=== PATIENT | female | born 1970 | race Caucasian/White ===

== ENCOUNTER 2019-02-10 09:59 | Day surgery (SDC) | payer MEDICAID ==
[~2019-02-10 09:59] MED LIST: Lactated Ringers 1,000 ML IV SCH; Sodium Chloride 0.9% 10 ML Syringe FLUSH PRN
[2019-02-10] MEDS ORDERED: fentaNYL 100 MCG/2 ML SDV ONE (11:11)
[2019-02-10] MEDS ORDERED: Propofol 200 MG/20 ML SDV ONE (11:11)
--- NOTE | 2019-02-10 12:34 | OR ---
PREOPERATIVE DIAGNOSIS: Screening colonoscopy. POSTOPERATIVE DIAGNOSIS: Normal colonoscopic exam. PROCEDURE PROPOSED/PROCEDURE DONE: Total flexible colonoscopy. INDICATION: This is a 49-year-old female, who comes in for a screening colonoscopy based on her age. She denies any symptomatology and she has a negative family history for any colon cancer. TECHNIQUE: The patient was brought to the endoscopy suite, placed in left lateral decubitus position. She was sedated per HUMAN CAPITAL MANAGER with propofol. The flexible video colonoscope was then passed transanally and under visualization advanced to the cecum. Examination revealed a normal ascending, transverse, descending, sigmoid, and rectal colon. There was no evidence of any diverticulosis, polyps, colitis, or any other abnormalities. The scope was withdrawn. She tolerated the procedure well. FINAL IMPRESSION: Essentially normal colonoscopic exam. PLAN: The patient was reassured and I felt she could wait 10 years before she needs a repeat colonoscopy. SCM: 02/10/2019 12:24:03 MODL: 02/10/2019 12:31:19 /[id number]
== END 2019-02-10 13:30 | disposition home or self-care (01) ==
LOC: VM.SDS 09:59
PROVIDERS: ATTEND Surgery
DX: Z12.11 Encounter for screening for malignant neoplasm of colon (principal); E03.9 Hypothyroidism, unspecified; G43.509 Persistent migraine aura without cerebral infarction, not intractable, without status migrainosus; I65.23 Occlusion and stenosis of bilateral carotid arteries; J06.9 Acute upper respiratory infection, unspecified; Z88.8 Allergy status to other drugs, medicaments and biological substances; Z88.0 Allergy status to penicillin; Z88.2 Allergy status to sulfonamides
CPT/HCPCS: J2704; J3010; J7120

== ENCOUNTER 2019-10-02 21:45 | Emergency (ER) | payer MEDICAID ==
[2019-10-02] MEDS ORDERED: Take Home: Naproxen 500 MG Tab, 4 Tab Pack PO ONE (23:11)
--- NOTE | 2019-10-03 06:00 | EDM.PDOC ---
ED HPI GENERAL MEDICAL PROBLEM - General Chief Complaint: Lower Extremity Injury/Pain Stated Complaint: INJURY TO R knee Time Seen by Provider: 10/02/19 21:50 Source of Information: Reports: Patient History Limitations: Reports: No Limitations - History of Present Illness INITIAL COMMENTS - FREE TEXT/NARRATIVE: PtRajat presents to ER with complaints of R knee pain. She states that she feel down 2 stairs while carrying blankets down the stairs. She states that her pain is isolated to her R proximal lower leg area/knee. Denies striking her head. No chest pain or shortness of breath. Denies any chest pain, shortness of breath, lightheadedness prior to the fall. Onset Date: 10/03/19 Location: Reports: Lower Extremity, Right Quality: Reports: Sharp Right Knee Pain Score (Numeric/FACES): 3 - Related Data Allergies Allergy/AdvReac Type Severity Reaction Status Date / Time Barbiturates Allergy Other Verified 10/02/19 22:02 nitrofurantoin Allergy Hives Verified 10/02/19 22:02 Penicillins Allergy Hives Verified 10/02/19 22:02 Sulfa (Sulfonamide Allergy Other Verified 10/02/19 22:02 Antibiotics) Home Meds: Home Meds Levothyroxine 75 mcg PO ACBREAKFAST 02/06/19 [History] Past Medical History Other Cardiovascular History: artherosclerosis of both arotid artieries Neurological History: Reports: Migraines Endocrine/Metabolic History: Reports: Hypothyroidism Social & Family History - Tobacco Use Smoking Status *Q: Never Smoker Review of Systems - Review of Systems Review Of Systems: Comprehensive ROS is negative, except as noted in HPI. ED EXAM, GENERAL - Physical Exam Exam: See Below Exam Limited By: No Limitations General Appearance: Alert, WD/WN, No Apparent Distress Extremities: Leg Pain (pain to palp of R proximal lower leg/knee. No deformity. No crepitus.) Neurological: Alert, Oriented, CN II-XII Intact, Normal Cognition, Normal Gait, Normal Reflexes, No Motor/Sensory Deficits Course - Vital Signs Last Recorded V/S: Last Vital Signs Temp 36.2 C 10/02/19 21:57 Pulse 95 10/02/19 21:57 Resp 16 10/02/19 21:57 BP 115/67 10/02/19 21:57 Pulse Ox 96 02/13/20 21:57 - Orders/Labs/Meds Orders: Active Orders 24 hr Category Date Time Status Knee 3V Rt [CR] Stat Exams 10/02/19 21:59 Taken Tibia Fibula Rt [CR] Stat Exams 10/02/19 21:58 Taken Meds: Medications Discontinued Medications Generic Name Dose Route Start Last Admin Trade Name Carlos PRN Reason Stop Dose Admin Naproxen 1 packet 10/02/19 23:11 10/02/19 23:19 Take Home: Naproxen 500 Mg, 4 Tab Pack PO 10/02/19 23:12 1 packet ONETIME ONE Administration - Radiology Interpretation Free Text/Narrative:: No pathology on R knee/lower leg radiographs Departure - Departure Time of Disposition: 23:30 Disposition: Home, Self-Care 01 Clinical Impression: Right knee sprain - Discharge Information Instructions: RICE Therapy for Routine Care of Injuries, [id number], Knee Sprain, Adult, [id number], Naproxen and naproxen sodium oral immediate- release tablets Referrals: Nevaeh Dawson MD [Primary Care Provider] - Forms: ED Department Discharge Additional Instructions: Home to rest Ice knee for 20 min every 1-2 hours Naproxen 500mg 1 tab twice daily as needed for pain Use YOSEF wrap as needed for further support. Use crutches to assist in getting around. Slowly try adding more weight as you are able. If you are unable to bear any weight after a week, follow-up in clinic. Otherwise follow-up in clinic in 10-14 days for recheck. Sepsis Event Note - Evaluation Sepsis Screening Result: No Definite Risk - Focused Exam Vital Signs: Vital Signs Temp Pulse Resp BP Pulse Ox 10/02/19 21:57 36.2 C 95 16 115/67 96 Date Exam was Performed: 10/03/19 Time Exam was Performed: 05:55 - My Orders Last 24 Hours: My Active Orders 10/02/19 21:58 Tibia Fibula Rt [CR] Stat 10/02/19 21:59 Knee 3V Rt [CR] Stat - Assessment/Plan Last 24 Hours: My Active Orders 10/02/19 21:58 Tibia Fibula Rt [CR] Stat 10/02/19 21:59 Knee 3V Rt [CR] Stat Plan: Home to rest Ice knee for 20 min every 1-2 hours Naproxen 500mg 1 tab twice daily as needed for pain Use YOSEF wrap as needed for further support. Use crutches to assist in getting around. Slowly try adding more weight as you are able. If you are unable to bear any weight after a week, follow-up in clinic. Otherwise follow-up in clinic in 10-14 days for recheck.
--- NOTE | 2019-10-03 07:42 | CR ---
[id number] RAD/RAD Tibia Fibula Right EXAM: RAD Tibia Fibula Right CLINICAL DATA: TRAUMA COMPARISON: NO PREVIOUS SIMILAR EXAM IS AVAILABLE. FINDINGS: No fracture or dislocation is seen. There is no radiopaque foreign body in the soft tissues. There is no air in the soft tissues. There is no cortical thickening or periosteal reaction either. IMPRESSION: NEGATIVE PLAIN FILM EXAM. Braden Joe MD 10/03/19 0740 Thank you for allowing us to participate in the care of your patient.
--- NOTE | 2019-10-03 07:42 | CR ---
[id number] RAD/RAD Knee Right 3V EXAM: RAD Knee Right 3V CLINICAL DATA: TRAUMA COMPARISON: No previous similar exam is available. FINDINGS: No fracture or dislocation is seen. There is no radiopaque foreign body in the soft tissues. There is no air in the soft tissues. There is no cortical thickening or periosteal reaction either. IMPRESSION: NEGATIVE PLAIN FILM EXAM. Braden Joe MD 10/03/19 0741 Thank you for allowing us to participate in the care of your patient.
== END 2019-10-02 23:30 | disposition home or self-care (01) ==
LOC: VM.ED 21:45
DX: S83.91XA Sprain of unspecified site of right knee, initial encounter (principal); E03.9 Hypothyroidism, unspecified; Z79.899 Other long term (current) drug therapy; Z88.0 Allergy status to penicillin; Z88.2 Allergy status to sulfonamides; W10.9XXA Fall (on) (from) unspecified stairs and steps, initial encounter
CPT/HCPCS: 73562-RT; 73590-RT; 99283-25; A9270-GY

== ENCOUNTER 2020-08-31 16:51 | Emergency (ER) | payer MEDICAID ==
--- NOTE | 2020-08-31 17:16 | EDM.PDOC ---
ED HPI GENERAL MEDICAL PROBLEM - General Chief Complaint: Laceration Stated Complaint: LACERATION ON FOREHEAD Time Seen by Provider: 08/31/20 17:03 - History of Present Illness INITIAL COMMENTS - FREE TEXT/NARRATIVE: Teri is a 50 y/o female who comes to the ER with a laceration to the right eye region. She had her 11 month old lab puppy on a leash and the dog was quite energetic and pulled her very fast and she tripped and hit the edge of her staircase. She sustained a laceration to the lateral aspect of her right eye. No other injuries. No LOC. - Related Data Allergies Allergy/AdvReac Type Severity Reaction Status Date / Time Barbiturates Allergy Other Verified 10/02/19 22:02 nitrofurantoin Allergy Hives Verified 10/02/19 22:02 Penicillins Allergy Hives Verified 10/02/19 22:02 Sulfa (Sulfonamide Allergy Other Verified 10/02/19 22:02 Antibiotics) Home Meds: Home Meds Levothyroxine 75 mcg PO ACBREAKFAST 02/06/19 [History] Past Medical History Other Cardiovascular History: artherosclerosis of both arotid artieries Neurological History: Reports: Migraines Endocrine/Metabolic History: Reports: Hypothyroidism Review of Systems - Review of Systems Review Of Systems: See Below Constitutional: Reports: No Symptoms Eyes: Reports: No Symptoms Ears: Reports: No Symptoms Nose: Reports: No Symptoms Mouth/Throat: Reports: No Symptoms Respiratory: Reports: No Symptoms Cardiovascular: Reports: No Symptoms GI/Abdominal: Reports: No Symptoms Genitourinary: Reports: No Symptoms Musculoskeletal: Reports: No Symptoms Skin: Reports: Wound (right eye region laceration) Neurological: Reports: No Symptoms Psychiatric: Reports: No Symptoms ED EXAM, GENERAL - Physical Exam Exam: See Below General Appearance: Alert, WD/WN, No Apparent Distress (Adult female.) Eye Exam: Bilateral Eye: PERRL Ears: Hearing Grossly Normal Nose: Normal Inspection Throat/Mouth: Normal Voice Head: Atraumatic, Normocephalic Respiratory/Chest: No Respiratory Distress GI/Abdominal: Soft (Female) Exam: Deferred Rectal (Female) Exam: Deferred Back Exam: Other (Deferred) Extremities: Normal Inspection, Normal Range of Motion, Normal Capillary Refill Neurological: Alert, Oriented, CN II-XII Intact, Normal Gait, No Motor/Sensory Deficits Psychiatric: Normal Affect, Normal Mood Skin Exam: Warm, Dry, Intact, Normal Color, Other (Note 1.5cm superficial laceration just lateral from the right eyebrow region, mild bleeding, edge a pproximate easily.) Course - Vital Signs Text/Narrative:: 1703 The patient was seen by the NUCLEAR SECURITY OFFICER. The laceration was repaired. See Procedure Note. Patient was given discharge instructions and left the ER in stable condition. Procedure Note Laceration Repair Following verbal consent of the patient, risks, benefits, and alternatives were reviewed. The wound on the right eyebrow region was prepped with saline. Dermabond adhesive was used for wound closure. Dressing was applied. Wound care instructions were reviewed. The patient tolerated the procedure well. Last Tetanus was as 2009 per patient report. Tdap was not given today. Departure - Departure Time of Disposition: 17:14 Disposition: Home, Self-Care 01 Condition: Good Clinical Impression: Laceration of right eye region - Discharge Information Instructions: Sutures, Denise, or Adhesive Wound Closure Forms: ED Department Discharge Additional Instructions: -May use acetaminophen or ibuprofen as needed for pain. -Keep the wound dry for at least 24 hours. See instructions for wound care. -Return to your PCP clinic or the ER if you have any concerns or feel the wound is not healing as expected.
== END 2020-08-31 17:20 | disposition home or self-care (01) ==
LOC: VM.ED 16:51
DX: S01.81XA Laceration without foreign body of other part of head, initial encounter (principal); E03.9 Hypothyroidism, unspecified; Z88.8 Allergy status to other drugs, medicaments and biological substances; Z88.1 Allergy status to other antibiotic agents; Z88.0 Allergy status to penicillin; Z88.2 Allergy status to sulfonamides; Z79.899 Other long term (current) drug therapy; W01.10XA Fall on same level from slipping, tripping and stumbling with subsequent striking against unspecified object, initial encounter
CPT/HCPCS: 12011; 99282; 99283

== ENCOUNTER 2023-07-27 19:19 | Emergency (ER) | payer MEDICAID ==
[2023-07-27 19:50] LABS: BASOPHILS ABSOLUTE AUTO 0.1 x10^3/uL (0.0-0.2); BASOPHILS PERCENT AUTO 0.8 % (0.2-1.2); EOSINOPHILS ABSOLUTE AUTO 0.2 x10^3/uL (0.0-0.5); HEMATOCRIT 42.3 % (33.0-47.0); HEMOGLOBIN 14.2 g/dL (12.0-16.0); IMMATURE GRAN ABSOLUTE AUTO 0.01 x10^3/uL (0.00-0.07); LYMPHOCYTES ABSOLUTE AUTO 2.6 x10^3/uL (1.0-4.8); LYMPHOCYTES PERCENT AUTO 40.8 % (25.0-50.0); MEAN CORPUSCULAR HEMOGLOBIN 29.8 pg (26.0-32.0); MEAN CORPUSCULAR HGB CONC 33.6 g/dL (32.0-36.0); MEAN CORPUSCULAR VOLUME 88.9 fL (78.0-93.0); MONOCYTES ABSOLUTE AUTO 0.5 x10^3/uL (0.0-0.8); MONOCYTES PERCENT AUTO 7.1 % (2.0-11.0); NEUTROPHILS ABSOLUTE AUTO 3.1 x10^3/uL (1.8-7.7); NEUTROPHILS PERCENT AUTO 48.1 % (50.0-80.0); PLATELET COUNT,PLT 272 x10^3/uL (130-400); RED BLOOD CELL COUNT 4.76 x10^6/uL (4.00-5.50); WHITE BLOOD CELL COUNT,WBC 6.4 x10^3/uL (4.0-10.0)
[2023-07-27 20:04] LABS: A/G RATIO 0.97; ALANINE AMINOTRANSFERASE,ALT 28 U/L (14-59); ALBUMIN 3.6 g/dL (3.4-5.0); ALKALINE PHOSPHATASE 81 U/L (46-116); ASPARTATE AMNIOTRANSFERASE,AST 20 U/L (15-37); BILIRUBIN TOTAL 0.6 mg/dL (0.2-1.0); BLOOD UREA NITROGEN,BUN 16 mg/dL (7-18); CALCIUM 9.4 mg/dL (8.5-10.1); CARBON DIOXIDE,CO2 30 mmol/L (21-32); CHLORIDE,CL 103 mmol/L (98-107); CREATININE 0.9 mg/dL (0.55-1.02); GLUCOSE RANDOM 106 mg/dL (70-99); POTASSIUM,K 5.4 mmol/L (3.5-5.1); PROTEIN TOTAL,TP 7.3 g/dL (6.4-8.2); SODIUM,NA 141 mmol/L (136-145)
[2023-07-27 20:05] LABS: ANION GAP 13.4 mmol/L (5-15); C-REACTIVE PROTEIN < 0.50 mg/dL (<=0.50); ESTIMATED GFR 76 mL/min (>=60)
== END 2023-07-27 20:36 | disposition home or self-care (01) ==
LOC: VM.ED 19:19
DX: M79.605 Pain in left leg (principal); E03.9 Hypothyroidism, unspecified; Z88.2 Allergy status to sulfonamides; Z88.8 Allergy status to other drugs, medicaments and biological substances; Z88.0 Allergy status to penicillin
CPT/HCPCS: 36415; 72100; 80053; 85025; 85379; 86140; 99283